=== PATIENT | female | born 1970 | race Caucasian/White ===

== ENCOUNTER 2017-02-02 08:19 | Emergency (ER) | payer MEDICAID, OTHER ==
[~2017-02-02] VITALS: Ht 154.9 cm; Wt 68.0 kg
[~2017-02-02 08:19] MED LIST: ACET500C5 PO
[2017-02-02 08:23] VITALS: Ht 154.9 cm; Wt 68.0 kg
[2017-02-02] MEDS ORDERED: ACETAMINOPHEN 325 MG TAB PO ONE (09:30)
--- NOTE | 2017-02-02 10:53 | ERD ---
ER Documentation Chief Complaint Date/Time DATE: 02/02/17 TIME: 10:50 Chief Complaint body aches and chills x 15 days, denies cough HPI Patient is a 46-year-old female who presents to the ED with body aches, chills for 1 month. She states that she has had these symptoms on and off for the last month. She states that the body aches are located from her shoulders all the way down to her legs. She denies weakness. She is able to ambulate. She denies abdominal pain, nausea, vomiting, diarrhea or constipation. Last bowel movement was today. She denies headache or dizziness or blurry vision. She denies any trauma. She denies fever or chills. She states that she has a sore throat. Denies cough, runny nose, ear pain or congestion. Denies chest pain, shortness of breath or difficulty breathing. She has taken Motrin for her symptoms which has helped with her body aches. ROS All systems reviewed and are negative except as per history of present illness. Medications Home Meds Active Scripts Acetaminophen* (Tylophen*) 500 Mg Capsule, 1 CAP PO Q6H Y for PAIN AND OR ELEVATED TEMP, #20 CAP Prov:JD CHUNG PA-C 09/17/16 Allergies Allergies: Coded Allergies: No Known Allergy (Unverified , 09/14/16) PMhx/Soc History of Surgery: Yes (APPENDECTOMY, BREAST CANCER 2013) Anesthesia Reaction: No Hx Neurological Disorder: No Hx Respiratory Disorders: No Hx Cardiac Disorders: No Hx Psychiatric Problems: No Hx Miscellaneous Medical Probl: Yes (RT BREAST CANCER 2001) Hx Alcohol Use: No Hx Substance Use: No Hx Tobacco Use: No Smoking Status: Never smoker Physical Exam Vitals Vital Signs Date Time Temp Pulse Resp B/P Pulse Ox O2 Delivery O2 Flow Rate FiO2 02/02/17 08:23 98.6 84 18 133/86 98 Physical Exam GENERAL: Well-developed, well-nourished female. Appears in no acute distress. HEAD: Normocephalic, atraumatic. EYES: Pupils are equally reactive bilaterally. EOMs grossly intact. No conjunctival erythema. ENT: Moist mucous membranes. No uvula deviation. No kissing tonsils. No exudates. Clear with no erythema or drainage NECK: Supple. No lymphadenopathy or thyromegaly. No meningismus. negative kernig. negative brudinski. LUNG: Clear to auscultation bilaterally. No rhonchi, wheezing, rales or coarse breath sounds. HEART: Regular rate and rhythm. No murmurs, rubs or gallops. ABDOMEN: No scars, ecchymosis or rashes noted. Soft, nontender, and nondistended. Positive bowel sounds in all four quadrants. No rebound tenderness , no guarding. (-) McBurneys point tenderness. No CVA tenderness. BACK: No midline tenderness. Extremities: Equal pulses bilaterally. No peripheral clubbing, cyanosis or edema. No unilateral leg swelling. NEUROLOGIC: Alert and oriented. Moving all four extremities. 5/5 strength in all extremities. Normal speech. Steady gait. Cranial nerves II through XII intact SKIN: Normal color. Warm and dry. No rashes or lesions. Capillary refill < 2 seconds Results 24 hrs Current Medications Medications (Trade) Dose Ordered Sig/Stanislav Route PRN Reason Start Time Stop Time Status Last Admin Dose Admin Acetaminophen (Tylenol Tab) 650 mg ONCE ONCE PO 02/02/17 09:30 02/02/17 09:31 DC Procedures/MDM ER COURSE: I kept the patient and/or family informed of laboratory and diagnostic imaging results throughout the emergency room course. MEDICAL DECISION MAKING: This is a 46-year-old female who presents with body aches and chills 1 month. Vital signs were reviewed. Patient is afebrile. Patient is not hypoxic. Patient is nontoxic or ill-appearing. I ordered a and a Monospot test on patient. However patient eloped. Multiple attempts to call patient, no response. I could not further examine it the patient and review her labs. Patient is marked of the lobe. Patient was stable after initial examination. Stable in the waiting room. Departure Diagnosis: Primary Impression: Body aches Condition: Stable JD CHUNG PA-C Feb 02, 2017 10:53
== END 2017-02-02 11:29 | disposition left against medical advice (07) ==
LOC: FTE 08:19
DX: M25.519 Pain in unspecified shoulder (principal); Z85.3 Personal history of malignant neoplasm of breast
CPT/HCPCS: 99282

== ENCOUNTER 2017-11-07 06:28 | Day surgery (SDC) | payer OTHER ==
[2017-11-07] VITALS (10 sets, daily range): BP systolic 102–123; BP diastolic 61–77; PULSE 89–115; RESP 10–18; Ht 157.5 cm; Wt 65.8 kg
[~2017-11-07] VITALS: Ht 157.5 cm; Wt 65.8 kg
[2017-11-07] MEDS ORDERED: MIDAZOLAM 1 MG/ML 2 ML INJ ONE (08:07)
[2017-11-07] MEDS ORDERED: FENTAnyl 50 MCG/ML VIAL ONE (08:08)
[2017-11-07] MEDS ORDERED: LIDOCAINE 2% (SDV) 5 ML INJ ONE (08:39)
[2017-11-07] MEDS ORDERED: PROPOFOL 20 ML ONE (08:39)
[2017-11-07] MEDS ORDERED: ONDANSETRON 4 MG INJ ONE (08:40)
[2017-11-07] MEDS ORDERED: CEFAZOLIN 1 GM INJ ONE (08:40)
--- NOTE | 2017-11-07 08:47 | OPR ---
Date/Time of Note Date/Time of Note DATE: 11/07/17 TIME: 08:36 Operative Report Free Text/Dictation 46 years old admitted due to abnormal uterine bleeding with hypermenorrhea for diagnostic curettage to rule out any endometrial hyperplasia or carcinoma Procedure Date: Nov 07, 2017 Preoperative Diagnosis Abnormal uterine bleeding Postoperative Diagnosis Abnormal uterine bleeding diagnostic curettage pending pathology report Operation/Procedure Performed Diagnostic curettage Surgeon see signature line Food Production Associate None Anesthesia Type: general Anesthesiologist: FAIZAN HANNA MD Estimated Blood Loss: 0 - 10 ml's Transfusion none Specimen Endometrial tissue Grafts/Implants none Tubes/Drains none Complications none Pt Condition Post Procedure: stable Disposition: other (May discharge home today) Procedure Description Under satisfactory general anesthesia patient prepped and draped and placed in dorsal lithotomy position bimanual pelvic examination. Normal maritus introitus normal vagina. Cervix hypertrophic firm, uterus enlarged irregular multiple fibroids ,adnexa not palpable. Weighted speculum introduced into the vagina anterior cervical lip grasped by Garrett tenaculum uterine cavity sounded measured 14 cm ,cervical dilatation further advanced with Hanks dilator ,medium-sized sharp curetting performed started at 12:00 counterclockwise, moderate amount of endometrial tissue obtained submitted for the pathology ,estimated blood loss less than 5 cc patient tolerated procedure well transferred to recovery room in a good condition JACOB MCDUFFIE MD Nov 07, 2017 08:46
--- NOTE | 2017-11-07 08:49 | DS ---
Date/Time of Note Date/Time of Note DATE: 11/07/17 TIME: 08:47 Discharge Summary Admission/Discharge Info Admit Date/Time November 07, 2017 Discharge Date/Time November 07, 2017 at 10:00 Discharge Diagnosis Post diagnostic curettage Patient Condition: Good Procedures Diagnostic curettage for abnormal uterine bleeding Hx of Present Illness Abnormal uterine bleeding Hospital Course Satisfactory uneventful Home Meds Active Scripts Acetaminophen* (Tylophen*) 500 Mg Capsule, 1 CAP PO Q6H Y for PAIN AND OR ELEVATED TEMP, #20 CAP Prov:JD CHUNG PA-C 09/17/16 Follow-up Plan Post D&C instruction given recommended patient to be seen at the office in 1 week Primary Care Provider Care Physician No Primary Time spent on discharge: < 30 minutes JACOB MCDUFFIE MD Nov 07, 2017 08:49
--- NOTE | 2017-11-07 08:50 | PD.PPDC ---
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
[2017-11-07] MEDS ORDERED: FENTAnyl 50 MCG/ML VIAL IV PRN (09:00)
[2017-11-07] MEDS ORDERED: ONDANSETRON 4 MG INJ IV PRN (09:00)
[2017-11-07] MEDS ORDERED: KETOROLAC 30 MG INJ IV PRN (09:00)
[2017-11-07] MEDS ORDERED: MEPERIDINE 25 MG INJ IV PRN (09:00)
[2017-11-07] MEDS ORDERED: HYDROmorphONE (0.2 MG/ML) 10ML SYG IV PRN ×2 (09:00)
[2017-11-07] MEDS ORDERED: DIPHENHYDRAMINE 50 MG INJ IV PRN (09:00)
[2017-11-07] MEDS ORDERED: IBUPROFEN 600 MG TAB PO PRN (09:00)
== END 2017-11-07 10:40 | disposition home or self-care (01) ==
LOC: SDS 06:28
PROVIDERS: ATTEND Obstetrics & Gynecology
DX: N93.9 Abnormal uterine and vaginal bleeding, unspecified (principal); Z80.3 Family history of malignant neoplasm of breast; E66.9 Obesity, unspecified; Z68.26 Body mass index [BMI] 26.0-26.9, adult
CPT/HCPCS: 58120; 88300; J0690; J2250; J2405; J3010; Z7512; Z7610

== ENCOUNTER 2018-03-17 11:08 | Emergency (ER) | END 2018-03-17 20:11 | disposition left against medical advice (07) ==

== ENCOUNTER 2018-07-11 07:09 | Day surgery (SDC) | END 2018-07-11 11:10 | disposition home or self-care (01) ==

== ENCOUNTER 2018-09-05 06:47 | Day surgery (SDC) | END 2018-09-05 12:02 | disposition home or self-care (01) ==

== ENCOUNTER 2018-10-31 06:00 | Inpatient (IN) | END 2018-11-03 18:40 | disposition home or self-care (01) | DRG 743 ==

== ENCOUNTER 2018-12-18 10:53 | Emergency (ER) | payer OTHER ==
[~2018-12-18] VITALS: Wt 78.0 kg
[~2018-12-18 10:53] MED LIST changes: -ACET500C5 PO; +TAMOXIFEN
[2018-12-18] MEDS ORDERED: TAMO10TA20 PO (12:12)
[2018-12-18] MEDS ORDERED: OMEP20CA16 PO (12:12)
[2018-12-18] MEDS ORDERED: LIDOCAINE/MYLANTA 40 ML BTL PO STA (12:47)
[2018-12-18] MEDS ORDERED: BELLADONNA/PHENOBARBITAL TAB PO STA (12:47)
[2018-12-18] MEDS ORDERED: ONDANSETRON 4 MG INJ IV STA (12:47)
[2018-12-18] MEDS ORDERED: KETOROLAC 15 MG INJ IV STA (12:47)
[2018-12-18] MEDS ORDERED: SOD CHLORIDE 0.9% 1,000 ML IV STA (12:47)
[2018-12-18 13:42] VITALS: BP 124/94; PULSE 87; RESP 18
[2018-12-18] MEDS ORDERED: OMEP40CA6 PO (13:57)
[2018-12-18] MEDS ORDERED: ONDA4TAB8 PO (13:57)
[2018-12-18] MEDS ORDERED: NAPR-985 PO (13:57)
--- NOTE | 2018-12-18 18:32 | ERD ---
ER Documentation Chief Complaint Chief Complaint AP X 1 MOS HPI 48-year-old woman complaining of 1 month sharp, nonradiating nonexertional right upper quadrant and epigastric abdominal pain. Pain is usually precipitated by p.o. intake and she has had similar episodes of pain in the past. She denies fevers or chills, no blood per rectum or melena, no hematemesis, no chest pain or shortness of breath. Patient is status post total abdominal hysterectomy and bilateral salpingo-oophorectomy about 1 month ago. She denies dysuria or vaginal bleeding. Patient denies weight loss. ROS All systems reviewed and are negative except as per history of present illness. Medications Home Meds Active Scripts Omeprazole* (Omeprazole*) 40 Mg Capsule., 40 MG PO DAILY, #14 CAP Prov:SARAI TRACY MD 12/18/18 Ondansetron Hcl* (Zofran*) 4 Mg Tablet, 4 MG PO Q6H for NAUSEA AND/OR VOMITING, #20 TAB Prov:SARAI TRACY MD 12/18/18 Naproxen* (Naprosyn*) 500 Mg Tablet, 500 MG PO BID PRN for PAIN AND/OR INFLAMMATION, #60 TAB Prov:SARAI TRACY MD 12/18/18 Reported Medications Omeprazole* (Omeprazole*) 20 Mg Capsule.dr, 20 MG PO AC BREAKFAST, #30 CAP 12/18/18 Tamoxifen Citrate* (Tamoxifen Citrate*) 10 Mg Tab, 10 MG PO DAILY, TAB 12/18/18 Discontinued Reported Medications [Tamoxiphen] No Conflict Check 09/05/18 Allergies Allergies: Coded Allergies: No Known Allergy (Unverified , 07/11/18) PMhx/Soc Chronic pelvic pain, recent history of total abdominal hysterectomy and bilateral salpingo-oophorectomy, breast cancer status post tamoxifen treatment, chronic anemia History of Surgery: Yes (appendectomy, right axilla lymph nodes removed 5 yrs ago, hysterectomy) Anesthesia Reaction: No Hx Neurological Disorder: No Hx Respiratory Disorders: No Hx Cardiac Disorders: Yes (high cholesterol) Hx Psychiatric Problems: No Hx Miscellaneous Medical Probl: Yes (Right axilla lymph nodes CA) Hx Alcohol Use: No Hx Substance Use: No Hx Tobacco Use: No Smoking Status: Never smoker FmHx Family History: No diabetes Physical Exam Vitals Vital Signs Date Temp Pulse Resp B/P (MAP) Pulse Ox O2 O2 Flow FiO2 Time Delivery Rate 12/18/18 87 18 124/94 98 Room Air 13:42 (104) 12/18/18 98.1 89 18 128/89 99 11:00 (102) Physical Exam GENERAL: Well-developed, well-nourished, appears well-hydrated, mild discomfort, nauseous HEENT: Moist mucous membranes, pink conjunctiva, no cervical spine tenderness or step-off deformities, no goiter, no jaundice or icterus, extraocular movements intact without pain. No submandibular induration, and no pharyngeal erythema NEURO: Alert and oriented 3, cranial nerves II through XII intact bilaterally, pupils equal round reactive to light, no focal deficits or facial asymmetry, sensation intact distally Strength 5/5 in upper and lower extremities bilaterally CARDIAC: Regular rate and rhythm, no murmurs rubs or gallops LUNGS: Clear bilaterally no wheezing crackles or stridor ABDOMEN: Soft nontender, no guarding, no rigidity, no rebound, no psoas sign no obturator sign. SKIN: Warm and dry to touch, no abrasions, contusions, or hematomas, no lacerations, no ecchymosis, no target lesions, and without ulcers EXTREMITIES: No clubbing cyanosis or edema, calves are bilaterally symmetrical, no Homans sign, no popliteal cord sign. Distal pulses equal and bilateral PSYCH: Normal affect without agitation or irritability Result Diagram: 12/18/18 1254 12/18/18 1254 Results 24 hrs Laboratory Tests Test 12/18/18 12:54 White Blood Count 4.5 10^3/ul Red Blood Count 4.74 10^6/ul Hemoglobin 12.2 g/dl Hematocrit 38.2 % Mean Corpuscular Volume 80.6 fl Mean Corpuscular Hemoglobin 25.7 pg Mean Corpuscular Hemoglobin Concent 31.9 g/dl Red Cell Distribution Width 16.2 % Platelet Count 297 10^3/UL Mean Platelet Volume 9.3 fl Immature Granulocytes % 0.700 % Neutrophils % 53.0 % Lymphocytes % 36.0 % Monocytes % 7.0 % Eosinophils % 2.2 % Basophils % 1.1 % Nucleated Red Blood Cells % 0.0 /100WBC Immature Granulocytes # 0.030 10^3/ul Neutrophils # 2.4 10^3/ul Lymphocytes # 1.6 10^3/ul Monocytes # 0.3 10^3/ul Eosinophils # 0.1 10^3/ul Basophils # 0.1 10^3/ul Nucleated Red Blood Cells # 0.0 10^3/ul Prothrombin Time 12.1 Sec Prothrombin Time Ratio 0.9 INR International Normalized Ratio 0.89 Activated Partial Thromboplast Time 29.1 Sec Urine Color STRAW Urine Clarity CLEAR Urine pH 6.0 Urine Specific [place] 1.010 Urine Ketones NEGATIVE mg/dL Urine Nitrite NEGATIVE mg/dL Urine Bilirubin NEGATIVE mg/dL Urine Urobilinogen NEGATIVE mg/dL Urine Leukocyte Esterase NEGATIVE [place]/ul Urine Hemoglobin NEGATIVE mg/dL Urine Glucose NEGATIVE mg/dL Urine Total Protein NEGATIVE mg/dl Sodium Level 141 mmol/L Potassium Level 4.1 mmol/L Chloride Level 104 mmol/L Carbon Dioxide Level 26 mmol/L Anion Gap 11 Blood Urea Nitrogen 8 mg/dl Creatinine 0.75 mg/dl Est Glomerular Filtrat Rate mL/min > 60 mL/min Glucose Level 101 mg/dl Calcium Level 9.8 mg/dl Total Bilirubin 0.1 mg/dl Direct Bilirubin 0.00 mg/dl Indirect Bilirubin 0.1 mg/dl Aspartate Amino Transf (AST/SGOT) 28 IU/L Alanine Aminotransferase (ALT/SGPT) 25 IU/L Alkaline Phosphatase 132 IU/L Total Protein 7.9 g/dl Albumin 4.5 g/dl Globulin 3.40 g/dl Albumin/Globulin Ratio 1.32 Lipase 79 U/L Current Medications Medications Dose Sig/Stanislav Start Time Status Last (Trade) Ordered Route PRN Stop Time Admin Dose Reason Admin Sodium 1,000 ml @ Q1H STAT 12/18/18 DC 12/18/18 Chloride 1,000 mls/hr IV 12:47 12:58 12/18/18 13:46 Ondansetron 4 mg ONCE STAT 12/18/18 DC 12/18/18 HCl (Zofran IV 12:47 12:59 Inj) 12/18/18 12:48 40 ml ONCE STAT 12/18/18 DC 12/18/18 Miscellaneous PO 12:47 12:58 Medication 12/18/18 12:48 (Gi Cocktail (2)) Belladonna/ 2 tab ONCE STAT 12/18/18 DC 12/18/18 Phenobarbital PO 12:47 12:58 () 12/18/18 12:48 Ketorolac 15 mg ONCE STAT 12/18/18 DC 12/18/18 Tromethamine IV 12:47 12:58 (Toradol) 12/18/18 12:48 Procedures/MDM IV line was established patient was placed on youth nutritional monitor rhythm strip revealed a sinus rhythm at about 80 bpm with upright P and T waves. Patient was afebrile I administered 1 L normal saline IV, GI cocktail p.o., Zofran 4 mg IV, Toradol 15 mg IV with resolution of pain. Right upper quadrant abdominal ultrasound was performed, no acute evidence of acute cholecystitis, please refer to radiologist dictation for full report CBC reveals mild leukopenia, electrolytes unremarkable, liver function tests were normal, urinalysis was negative for infection. Patient's vital signs remained normal and pain has resolved, repeat abdominal exam performed by me prior to discharge remains benign. I did tell her to return in 8 hours for repeat abdominal examination and reevaluation, or earlier if she develops a fever, vomiting, or worsening abdominal pain. Differential diagnoses considered, included but not limited to acute coronary syndrome, pulmonary embolism, aortic dissection, abdominal aortic aneurysm, sepsis, stroke, meningitis, encephalitis, pneumonia, appendicitis, cholecystitis , bowel obstruction, pyelonephritis, nephrolithiasis, cystitis, as well as metabolic, hematologic, and electrolyte abnormalities. As well as abscess, cellulitis, fractures, and dislocations. Patient feels much better at this time, and vital signs are normal, symptoms have improved. I did give strict instructions to return to the ED if symptoms continue or worsen, patient will otherwise follow-up with primary care physician. Patient understood instructions and agreed to plan. Disclaimer: Inadvertent spelling and grammatical errors are likely due to EHR/dictation software use and do not reflect on the overall quality of patient care. Also, please note that the electronic time recorded on this note does not necessarily reflect the actual time of the patient encounter. Departure Diagnosis: Primary Impression: Abdominal pain Abdominal location: epigastric Qualified Codes: R10.13 - Epigastric pain Condition: Good Patient Instructions: Abdominal Pain, Unknown Cause, (Female), Gastritis (Adult) SARAI TRACY MD Dec 18, 2018 18:32
== END 2018-12-18 14:50 | disposition home or self-care (01) ==
LOC: E/R 10:53
DX: R10.13 Epigastric pain (principal); R40.2142 Coma scale, eyes open, spontaneous, at arrival to emergency department; R40.2362 Coma scale, best motor response, obeys commands, at arrival to emergency department; R40.2252 Coma scale, best verbal response, oriented, at arrival to emergency department; Z85.3 Personal history of malignant neoplasm of breast; Z85.858 Personal history of malignant neoplasm of other endocrine glands
CPT/HCPCS: 36415; 76705; 80053; 81003; 83690; 85025; 85610; 85730; 96374; 96375; J1885; J2405; J7030; Z7502; Z7610